=== PATIENT | male | born 1960 | race Native Hawaiian/Other Pacific Islander ===

== ENCOUNTER → 2016-08-06 10:31 | Outpatient (CLI) | payer OTHER, BC | END | disposition home or self-care (01) | LOC: AMB 10:31 | DX: R55 Syncope and collapse (principal) ==

== ENCOUNTER 2016-08-26 08:44 | Outpatient (CLI) | payer OTHER, BC | END 2016-08-26 10:00 | disposition home or self-care (01) | LOC: LABW 08:44 | DX: Z94.0 Kidney transplant status (principal) | CPT/HCPCS: 36415; 80197 ==

== ENCOUNTER 2016-09-23 08:12 | Outpatient (CLI) | payer OTHER, BC | END 2016-09-23 19:10 | disposition home or self-care (01) | LOC: LABW 08:12 | DX: Z94.0 Kidney transplant status (principal) | CPT/HCPCS: 36415; 80197 ==

== ENCOUNTER 2016-10-21 08:44 | Outpatient (CLI) | payer OTHER, BC | END 2016-10-21 09:45 | disposition home or self-care (01) | LOC: LABW 08:44 | DX: Z94.0 Kidney transplant status (principal) | CPT/HCPCS: 36415; 80197 ==

== ENCOUNTER 2017-01-09 11:42 | Emergency (ER) | payer OTHER, BC ==
[~2017-01-09] VITALS: Ht 172.7 cm; Wt 80.7 kg
[2017-01-09 12:37] LABS: PLATELET COUNT 311 K/uL (142-355)
[2017-01-09 12:57] LABS: POTASSIUM 3.9 mmol/L (3.6-5.2)
== END 2017-01-09 12:45 | disposition short-term general hospital (02) ==
LOC: ED 11:42
DX: R07.89 Other chest pain (principal); I20.0 Unstable angina; E11.9 Type 2 diabetes mellitus without complications
CPT/HCPCS: 36415; 80053; 82550; 82962; 84484; 85027; 85610; 85730; 93005; 96365; 96366; 99285; J1644; J3490

== ENCOUNTER 2017-01-09 12:52 | Outpatient (CLI) | payer OTHER, BC | END 2017-01-09 13:22 | disposition short-term general hospital (02) | LOC: AMB 12:52 | DX: R07.89 Other chest pain (principal); I20.0 Unstable angina; E11.9 Type 2 diabetes mellitus without complications | CPT/HCPCS: A0425; A0427 ==

== ENCOUNTER 2017-03-18 14:25 | Outpatient (CLI) | payer OTHER, BC | END 2017-03-18 21:43 | disposition home or self-care (01) | LOC: LABW 14:25 | DX: Z94.0 Kidney transplant status (principal) | CPT/HCPCS: 36415; 80197 ==

== ENCOUNTER 2017-07-29 09:51 | Outpatient (CLI) | payer OTHER, BC | END 2017-07-29 22:29 | disposition home or self-care (01) | LOC: LAB 09:51 | DX: Z94.0 Kidney transplant status (principal) | CPT/HCPCS: 80197 ==

== ENCOUNTER 2017-08-19 11:10 | Outpatient (CLI) | payer OTHER, BC | END 2017-08-19 19:59 | disposition home or self-care (01) | LOC: LAB 11:10 | DX: Z94.0 Kidney transplant status (principal) | CPT/HCPCS: 80197 ==

== ENCOUNTER 2017-09-12 13:58 | Outpatient (CLI) | payer OTHER, BC | END 2017-09-12 19:49 | disposition home or self-care (01) | LOC: LABW 13:58 | DX: Z79.01 Long term (current) use of anticoagulants (principal); Z79.899 Other long term (current) drug therapy; Z51.81 Encounter for therapeutic drug level monitoring; I48.92 Unspecified atrial flutter | CPT/HCPCS: 36415; 85610 ==

== ENCOUNTER 2017-09-12 17:08 | Emergency (ER) | payer OTHER, BC ==
[~2017-09-12] VITALS: Ht 172.7 cm; Wt 86.6 kg
[2017-09-12 17:30] VITALS: BP 114/66; TEMP 99.9
[2017-09-12 19:25] LABS: PLATELET COUNT 202 K/uL (142-355)
[2017-09-12 19:51] LABS: PARTIAL THROMBOPLASTIN TIME 32.8 SECONDS (24.5-33.6)
== END 2017-09-12 20:19 | disposition home or self-care (01) ==
LOC: ED 17:08
PROVIDERS: Emergency Medicine
DX: R79.1 Abnormal coagulation profile (principal); N18.6 End stage renal disease
CPT/HCPCS: 85027; 85610; 85730; 96372; 99282

== ENCOUNTER 2017-09-15 10:26 | Outpatient (CLI) | payer OTHER, BC ==
[2017-09-15 10:49] LABS: PLATELET COUNT 217 K/uL (142-355)
[2017-09-16] MEDS ORDERED: METO50TA27 PO (11:07)
[2017-09-16] MEDS ORDERED: WARF5TAB6 PO (11:07)
[2017-09-16] MEDS ORDERED: ASTAGRAF XL1 MG PO (11:08)
[2017-09-16] MEDS ORDERED: MYCOPHENOLATE500 MG IV (11:09)
[2017-09-16] MEDS ORDERED: PROTONIX20 MG PO (11:10)
[2017-09-16] MEDS ORDERED: OMEPRAZOLE40 MG (11:11)
[2017-09-16] MEDS ORDERED: PRINIVIL5 MG OR (11:11)
[2017-09-16] MEDS ORDERED: GABA300C2 PO (11:12)
[2017-09-16] MEDS ORDERED: NEURONTIN 100M100 MG (11:12)
== END 2017-09-15 19:48 | disposition home or self-care (01) ==
LOC: LABW 10:26
PROVIDERS: Nurse Practitioner Adult Health
DX: I25.10 Atherosclerotic heart disease of native coronary artery without angina pectoris (principal); Z79.01 Long term (current) use of anticoagulants; I48.0 Paroxysmal atrial fibrillation; Z51.81 Encounter for therapeutic drug level monitoring
CPT/HCPCS: 36415; 85027; 85610

== ENCOUNTER 2017-09-16 08:14 | Emergency (ER) | payer OTHER, BC ==
[~2017-09-16] VITALS: Ht 172.7 cm; Wt 86.2 kg
[2017-09-16 08:13] VITALS: TEMP 97.9
[2017-09-16 09:39] LABS: PLATELET COUNT 221 K/uL (142-355)
[2017-09-16 09:58] LABS: POTASSIUM 5.4 mmol/L (3.6-5.2)
[2017-09-16 11:02] VITALS: BP 134/77
[2017-09-16] MEDS ORDERED: METO50TA27 PO (11:07)
[2017-09-16] MEDS ORDERED: WARF5TAB6 PO (11:07)
[2017-09-16] MEDS ORDERED: ASTAGRAF XL1 MG PO (11:08)
[2017-09-16] MEDS ORDERED: MYCOPHENOLATE500 MG IV (11:09)
[2017-09-16] MEDS ORDERED: PROTONIX20 MG PO (11:10)
[2017-09-16] MEDS ORDERED: PRINIVIL5 MG OR (11:11)
[2017-09-16] MEDS ORDERED: OMEPRAZOLE40 MG (11:11)
[2017-09-16] MEDS ORDERED: NEURONTIN 100M100 MG (11:12)
[2017-09-16] MEDS ORDERED: GABA300C2 PO (11:12)
== END 2017-09-16 11:02 | disposition home or self-care (01) ==
LOC: ED 08:14
PROVIDERS: Internal Medicine
DX: R07.89 Other chest pain (principal); I48.91 Unspecified atrial fibrillation; N18.6 End stage renal disease; E87.5 Hyperkalemia; I48.92 Unspecified atrial flutter; I45.81 Long QT syndrome
CPT/HCPCS: 36415; 80053; 82550; 82553; 84484; 85027; 93005; 99284

== ENCOUNTER 2017-09-22 13:45 | Outpatient (CLI) | payer OTHER, BC ==
[~2017-09-22 13:45] MED LIST: ASTAGRAF XL1 MG PO; GABA300C2 PO; METO50TA27 PO; MYCOPHENOLATE500 MG IV; NEURONTIN 100M100 MG; OMEPRAZOLE40 MG; PRINIVIL5 MG OR; PROTONIX20 MG PO; WARF5TAB6 PO
== END 2017-09-22 22:42 | disposition home or self-care (01) ==
LOC: LABW 13:45
DX: Z79.01 Long term (current) use of anticoagulants (principal); Z79.899 Other long term (current) drug therapy; Z51.81 Encounter for therapeutic drug level monitoring; I48.92 Unspecified atrial flutter
CPT/HCPCS: 36415; 85610

== ENCOUNTER 2017-09-26 10:05 | Outpatient (CLI) | payer OTHER, BC | END 2017-09-26 19:16 | disposition home or self-care (01) | LOC: LABW 10:05 | DX: I48.92 Unspecified atrial flutter (principal); Z79.01 Long term (current) use of anticoagulants | CPT/HCPCS: 36415; 85610 ==

== ENCOUNTER 2017-10-01 11:27 | Outpatient (CLI) | payer OTHER, BC | END 2017-10-01 23:58 | disposition home or self-care (01) | LOC: LABW 11:27 | DX: I48.92 Unspecified atrial flutter (principal) | CPT/HCPCS: 36415; 85610 ==

== ENCOUNTER 2017-10-10 10:10 | Outpatient (CLI) | payer OTHER, BC ==
[2017-10-10 10:35] LABS: PLATELET COUNT 262 K/uL (142-355)
== END 2017-10-10 18:00 | disposition home or self-care (01) ==
LOC: RESP 10:10 → LABW 10:10
PROVIDERS: Nurse Practitioner
DX: Z79.01 Long term (current) use of anticoagulants (principal); Z79.899 Other long term (current) drug therapy; I48.92 Unspecified atrial flutter; Z51.81 Encounter for therapeutic drug level monitoring; R53.83 Other fatigue
CPT/HCPCS: 36415; 85027; 85610; 93225

== ENCOUNTER 2017-10-27 09:06 | Outpatient (CLI) | payer OTHER, BC | END 2017-10-27 19:53 | disposition home or self-care (01) | LOC: LABW 09:06 | DX: Z79.01 Long term (current) use of anticoagulants (principal); Z79.899 Other long term (current) drug therapy; Z51.81 Encounter for therapeutic drug level monitoring; I48.92 Unspecified atrial flutter | CPT/HCPCS: 36415; 85610 ==

== ENCOUNTER 2017-10-28 09:52 | Outpatient (CLI) | payer OTHER, BC ==
[2017-10-28 10:19] LABS: PLATELET COUNT 289 K/uL (142-355)
== END 2017-10-28 19:29 | disposition home or self-care (01) ==
LOC: LAB 09:52
PROVIDERS: Physician Assistant
DX: Z79.01 Long term (current) use of anticoagulants (principal); I48.92 Unspecified atrial flutter; Z79.899 Other long term (current) drug therapy; Z51.81 Encounter for therapeutic drug level monitoring
CPT/HCPCS: 85027; 85610

== ENCOUNTER 2017-10-30 09:53 | Outpatient (CLI) | payer OTHER, BC ==
[2017-10-30 10:06] LABS: POTASSIUM 2.9 mmol/L (3.6-5.2)
[2017-10-30 10:13] LABS: PLATELET COUNT 265 K/uL (142-355)
== END 2017-10-30 19:50 | disposition home or self-care (01) ==
LOC: LAB 09:53
PROVIDERS: Physician Assistant
DX: I48.92 Unspecified atrial flutter (principal)
CPT/HCPCS: 80048; 85027; 85610

== ENCOUNTER 2017-11-11 09:10 | Outpatient (CLI) | payer OTHER, BC ==
[2017-11-11 09:41] LABS: PLATELET COUNT 252 K/uL (142-355)
[2017-11-11 09:55] LABS: POTASSIUM 5.7 mmol/L (3.6-5.2)
== END 2017-11-11 19:06 | disposition home or self-care (01) ==
LOC: LAB 09:10
PROVIDERS: Nurse Practitioner Adult Health
DX: I48.92 Unspecified atrial flutter (principal); Z79.01 Long term (current) use of anticoagulants; Z79.899 Other long term (current) drug therapy
CPT/HCPCS: 80048; 85027; 85610

== ENCOUNTER 2017-11-13 10:59 | Outpatient (CLI) | payer OTHER, BC ==
[2017-11-13 12:08] LABS: PLATELET COUNT 217 K/uL (142-355)
[2017-11-13 12:18] LABS: POTASSIUM 3.1 mmol/L (3.6-5.2)
== END 2017-11-13 23:17 | disposition home or self-care (01) ==
LOC: LAB 10:59
PROVIDERS: Nurse Practitioner Adult Health
DX: I48.92 Unspecified atrial flutter (principal); Z79.01 Long term (current) use of anticoagulants; Z79.899 Other long term (current) drug therapy
CPT/HCPCS: 80048; 85027; 85610

== ENCOUNTER 2017-11-17 09:13 | Outpatient (CLI) | payer OTHER, BC | END 2017-11-17 21:04 | disposition home or self-care (01) | LOC: LABW 09:13 | DX: I48.92 Unspecified atrial flutter (principal); Z79.899 Other long term (current) drug therapy; Z79.01 Long term (current) use of anticoagulants | CPT/HCPCS: 36415; 85610 ==

== ENCOUNTER 2017-11-18 10:34 | Outpatient (CLI) | payer OTHER, BC ==
[2017-11-18 11:00] LABS: PLATELET COUNT 272 K/uL (142-355)
[2017-11-18 11:23] LABS: POTASSIUM 3.3 mmol/L (3.6-5.2)
== END 2017-11-18 19:59 | disposition home or self-care (01) ==
LOC: LAB 10:34
PROVIDERS: Physician Assistant
DX: I48.92 Unspecified atrial flutter (principal); Z79.899 Other long term (current) drug therapy; Z79.01 Long term (current) use of anticoagulants
CPT/HCPCS: 80048; 85027; 85610

== ENCOUNTER 2017-11-20 09:55 | Outpatient (CLI) | payer OTHER, BC ==
[2017-11-20 10:12] LABS: PLATELET COUNT 276 K/uL (142-355)
[2017-11-20 12:59] LABS: POTASSIUM 5.3 mmol/L (3.6-5.2)
== END 2017-11-20 21:15 | disposition home or self-care (01) ==
LOC: LAB 09:55
PROVIDERS: Nurse Practitioner Adult Health
DX: I48.92 Unspecified atrial flutter (principal); Z79.01 Long term (current) use of anticoagulants; Z79.899 Other long term (current) drug therapy
CPT/HCPCS: 80048; 85027; 85610

== ENCOUNTER 2017-11-25 10:23 | Outpatient (CLI) | payer OTHER, BC ==
[2017-11-25 11:08] LABS: POTASSIUM 5.2 mmol/L (3.6-5.2)
== END 2017-11-25 21:59 | disposition home or self-care (01) ==
LOC: LAB 10:23
PROVIDERS: Nurse Practitioner Adult Health
DX: I48.92 Unspecified atrial flutter (principal); Z79.899 Other long term (current) drug therapy; Z79.01 Long term (current) use of anticoagulants
CPT/HCPCS: 80048; 85610

== ENCOUNTER 2017-12-02 10:31 | Outpatient (CLI) | payer OTHER, BC ==
[2017-12-02 11:05] LABS: POTASSIUM 5.5 mmol/L (3.6-5.2)
[2017-12-02 11:11] LABS: PLATELET COUNT 328 K/uL (142-355)
== END 2017-12-02 23:51 | disposition home or self-care (01) ==
LOC: LAB 10:31
PROVIDERS: Nurse Practitioner Adult Health
DX: Z79.01 Long term (current) use of anticoagulants (principal); Z79.899 Other long term (current) drug therapy; I48.92 Unspecified atrial flutter
CPT/HCPCS: 36415; 80048; 85027; 85610

== ENCOUNTER 2017-12-04 10:05 | Outpatient (CLI) | payer OTHER, BC ==
[2017-12-04 10:22] LABS: PLATELET COUNT 318 K/uL (142-355)
[2017-12-04 10:39] LABS: POTASSIUM 5.6 mmol/L (3.6-5.2)
== END 2017-12-04 19:16 | disposition home or self-care (01) ==
LOC: LAB 10:05
PROVIDERS: Nurse Practitioner Adult Health
DX: Z79.01 Long term (current) use of anticoagulants (principal); Z79.899 Other long term (current) drug therapy; I48.92 Unspecified atrial flutter
CPT/HCPCS: 80048; 85027; 85610

== ENCOUNTER 2017-12-09 10:15 | Outpatient (CLI) | payer OTHER, BC ==
[2017-12-09 10:36] LABS: PLATELET COUNT 307 K/uL (142-355)
[2017-12-09 10:56] LABS: POTASSIUM 5.4 mmol/L (3.6-5.2)
== END 2017-12-09 23:30 | disposition home or self-care (01) ==
LOC: LAB 10:15
PROVIDERS: Nurse Practitioner Adult Health
DX: I48.92 Unspecified atrial flutter (principal); Z79.01 Long term (current) use of anticoagulants; Z79.899 Other long term (current) drug therapy
CPT/HCPCS: 36415; 80048; 85027; 85610

== ENCOUNTER 2017-12-11 10:45 | Outpatient (CLI) | payer OTHER, BC ==
[2017-12-11 11:04] LABS: PLATELET COUNT 293 K/uL (142-355)
[2017-12-11 11:16] LABS: POTASSIUM 5.5 mmol/L (3.6-5.2)
== END 2017-12-11 23:21 | disposition home or self-care (01) ==
LOC: LAB 10:45
PROVIDERS: Nurse Practitioner Adult Health
DX: I48.92 Unspecified atrial flutter (principal); Z79.899 Other long term (current) drug therapy; Z79.01 Long term (current) use of anticoagulants
CPT/HCPCS: 80048; 85027; 85610

== ENCOUNTER 2017-12-16 10:03 | Outpatient (CLI) | payer OTHER, BC ==
[2017-12-16 10:27] LABS: PLATELET COUNT 273 K/uL (142-355)
[2017-12-16 10:54] LABS: POTASSIUM 5.4 mmol/L (3.6-5.2)
== END 2017-12-16 22:21 | disposition home or self-care (01) ==
LOC: LAB 10:03
PROVIDERS: Nurse Practitioner Adult Health
DX: I48.92 Unspecified atrial flutter (principal); Z79.899 Other long term (current) drug therapy; Z79.01 Long term (current) use of anticoagulants
CPT/HCPCS: 80048; 85027; 85610

== ENCOUNTER 2017-12-23 10:08 | Outpatient (CLI) | payer OTHER, BC ==
[2017-12-23 10:30] LABS: PLATELET COUNT 289 K/uL (142-355)
[2017-12-23 10:33] LABS: POTASSIUM 5.4 mmol/L (3.6-5.2)
== END 2017-12-23 22:27 | disposition home or self-care (01) ==
LOC: LAB 10:08
PROVIDERS: Nurse Practitioner Adult Health
DX: I48.92 Unspecified atrial flutter (principal); Z79.01 Long term (current) use of anticoagulants; Z79.899 Other long term (current) drug therapy
CPT/HCPCS: 80048; 85027; 85610

== ENCOUNTER 2017-12-30 12:30 | Outpatient (CLI) | payer OTHER, BC ==
[2017-12-30 12:49] LABS: POTASSIUM 5.9 mmol/L (3.6-5.2)
[2017-12-30 12:52] LABS: PLATELET COUNT 254 K/uL (142-355)
== END 2017-12-30 23:27 | disposition home or self-care (01) ==
LOC: LAB 12:30
PROVIDERS: Nurse Practitioner Adult Health
DX: I48.92 Unspecified atrial flutter (principal); Z79.899 Other long term (current) drug therapy; Z79.01 Long term (current) use of anticoagulants; N43.3 Hydrocele, unspecified
CPT/HCPCS: 80048; 85027; 85610

== ENCOUNTER 2017-12-30 12:54 | Outpatient (CLI) | payer OTHER, BC | END 2017-12-30 23:28 | disposition home or self-care (01) | LOC: US 12:54 | DX: N43.3 Hydrocele, unspecified (principal) ==

== ENCOUNTER 2018-01-06 10:12 | Outpatient (CLI) | payer OTHER, BC ==
[2018-01-06 10:47] LABS: PLATELET COUNT 241 K/uL (142-355)
[2018-01-06 11:24] LABS: POTASSIUM 5.2 mmol/L (3.6-5.2)
== END 2018-01-06 23:03 | disposition home or self-care (01) ==
LOC: LAB 10:12
PROVIDERS: Nurse Practitioner Adult Health
DX: I48.92 Unspecified atrial flutter (principal); Z79.899 Other long term (current) drug therapy; Z79.01 Long term (current) use of anticoagulants
CPT/HCPCS: 80048; 85027; 85610

== ENCOUNTER 2018-01-27 09:33 | Outpatient (CLI) | payer OTHER, BC ==
[2018-01-27 09:45] LABS: PLATELET COUNT 223 K/uL (142-355)
[2018-01-27 09:58] LABS: POTASSIUM 4.6 mmol/L (3.6-5.2)
== END 2018-01-27 21:21 | disposition home or self-care (01) ==
LOC: LAB 09:33
PROVIDERS: Nurse Practitioner Adult Health
DX: I48.92 Unspecified atrial flutter (principal); Z79.899 Other long term (current) drug therapy; Z79.01 Long term (current) use of anticoagulants
CPT/HCPCS: 36415; 80048; 85027; 85610

== ENCOUNTER 2018-02-03 11:11 | Outpatient (CLI) | payer OTHER, BC ==
[2018-02-03 11:25] LABS: PLATELET COUNT 208 K/uL (142-355)
[2018-02-03 11:41] LABS: POTASSIUM 6.4 mmol/L (3.6-5.2)
== END 2018-02-03 21:22 | disposition home or self-care (01) ==
LOC: LAB 11:11
PROVIDERS: Nurse Practitioner Adult Health
DX: I48.92 Unspecified atrial flutter (principal); Z79.01 Long term (current) use of anticoagulants; Z79.899 Other long term (current) drug therapy
CPT/HCPCS: 80048; 85027; 85610

== ENCOUNTER 2018-02-10 11:13 | Outpatient (CLI) | payer OTHER, BC ==
[2018-02-10 11:42] LABS: PLATELET COUNT 241 K/uL (142-355)
[2018-02-10 12:48] LABS: POTASSIUM 5.3 mmol/L (3.6-5.2)
== END 2018-02-10 22:19 | disposition home or self-care (01) ==
LOC: LABW 11:13
PROVIDERS: Nurse Practitioner Adult Health
DX: I48.92 Unspecified atrial flutter (principal); Z79.01 Long term (current) use of anticoagulants; Z79.899 Other long term (current) drug therapy
CPT/HCPCS: 80048; 85027; 85610

== ENCOUNTER 2018-02-17 10:09 | Outpatient (CLI) | payer OTHER, BC ==
[2018-02-17 11:11] LABS: PLATELET COUNT 208 K/uL (142-355)
[2018-02-17 11:19] LABS: POTASSIUM 5.3 mmol/L (3.6-5.2)
== END 2018-02-17 22:06 | disposition home or self-care (01) ==
LOC: LAB 10:09
PROVIDERS: Nurse Practitioner Adult Health
DX: I48.92 Unspecified atrial flutter (principal); Z79.899 Other long term (current) drug therapy; Z79.01 Long term (current) use of anticoagulants
CPT/HCPCS: 80048; 85027; 85610

== ENCOUNTER 2018-02-24 10:07 | Outpatient (CLI) | payer OTHER, BC ==
[2018-02-24 10:19] LABS: PLATELET COUNT 250 K/uL (142-355)
[2018-02-24 10:38] LABS: POTASSIUM 5.2 mmol/L (3.6-5.2)
== END 2018-02-24 22:24 | disposition home or self-care (01) ==
LOC: LAB 10:07
PROVIDERS: Nurse Practitioner Adult Health
DX: Z79.01 Long term (current) use of anticoagulants (principal); Z79.899 Other long term (current) drug therapy; I48.92 Unspecified atrial flutter
CPT/HCPCS: 80048; 85027; 85610

== ENCOUNTER 2018-03-03 12:02 | Outpatient (CLI) | payer OTHER, BC ==
[2018-03-03 12:25] LABS: PLATELET COUNT 260 K/uL (142-355)
[2018-03-03 13:14] LABS: POTASSIUM 5.2 mmol/L (3.6-5.2)
== END 2018-03-03 21:07 | disposition home or self-care (01) ==
LOC: LAB 12:02
PROVIDERS: Nurse Practitioner Adult Health
DX: I48.92 Unspecified atrial flutter (principal); Z79.899 Other long term (current) drug therapy; Z79.01 Long term (current) use of anticoagulants; Z94.0 Kidney transplant status
CPT/HCPCS: 80048; 80197; 85027; 85610

== ENCOUNTER 2018-03-05 14:01 | Outpatient (CLI) | payer OTHER, BC ==
[2018-03-05 14:24] LABS: PLATELET COUNT 231 K/uL (142-355)
[2018-03-05 14:40] LABS: POTASSIUM 5.9 mmol/L (3.6-5.2)
== END 2018-03-05 19:43 | disposition home or self-care (01) ==
LOC: LAB 14:01
PROVIDERS: Nurse Practitioner Adult Health
DX: Z79.01 Long term (current) use of anticoagulants (principal); Z79.899 Other long term (current) drug therapy; I48.92 Unspecified atrial flutter
CPT/HCPCS: 80048; 85027; 85610

== ENCOUNTER 2018-03-10 11:40 | Outpatient (CLI) | payer OTHER, BC ==
[2018-03-10 12:21] LABS: PLATELET COUNT 263 K/uL (142-355)
[2018-03-10 12:24] LABS: POTASSIUM 5.5 mmol/L (3.6-5.2)
== END 2018-03-10 21:29 | disposition home or self-care (01) ==
LOC: LAB 11:40
PROVIDERS: Nurse Practitioner Adult Health
DX: I48.92 Unspecified atrial flutter (principal); Z79.01 Long term (current) use of anticoagulants; Z79.899 Other long term (current) drug therapy
CPT/HCPCS: 80048; 85027; 85610

== ENCOUNTER 2018-03-17 10:23 | Outpatient (CLI) | payer OTHER, BC ==
[2018-03-17 10:38] LABS: PLATELET COUNT 248 K/uL (142-355)
[2018-03-17 11:13] LABS: POTASSIUM 5.3 mmol/L (3.6-5.2)
== END 2018-03-17 22:11 | disposition home or self-care (01) ==
LOC: LAB 10:23
PROVIDERS: Nurse Practitioner Adult Health
DX: I48.92 Unspecified atrial flutter (principal); Z79.899 Other long term (current) drug therapy; Z79.01 Long term (current) use of anticoagulants
CPT/HCPCS: 80048; 85027; 85610

== ENCOUNTER 2018-03-24 10:30 | Outpatient (CLI) | payer OTHER, BC ==
[2018-03-24 10:49] LABS: POTASSIUM 5.2 mmol/L (3.6-5.2)
[2018-03-24 11:01] LABS: PLATELET COUNT 206 K/uL (142-355)
== END 2018-03-24 22:32 | disposition home or self-care (01) ==
LOC: LAB 10:30
PROVIDERS: Nurse Practitioner Adult Health
DX: I48.92 Unspecified atrial flutter (principal); Z79.01 Long term (current) use of anticoagulants; Z79.899 Other long term (current) drug therapy
CPT/HCPCS: 80048; 85027; 85610

== ENCOUNTER 2018-04-07 09:37 | Outpatient (CLI) | payer OTHER, BC ==
[2018-04-07 09:45] LABS: PLATELET COUNT 178 K/uL (142-355)
== END 2018-04-07 20:42 | disposition home or self-care (01) ==
LOC: LAB 09:37
PROVIDERS: Physician Assistant
DX: I48.92 Unspecified atrial flutter (principal)
CPT/HCPCS: 85027; 85610

== ENCOUNTER 2018-04-09 11:15 | Outpatient (CLI) | payer OTHER, BC | END 2018-04-09 22:32 | disposition home or self-care (01) | LOC: LAB 11:15 | DX: I48.92 Unspecified atrial flutter (principal); Z79.899 Other long term (current) drug therapy; Z79.01 Long term (current) use of anticoagulants | CPT/HCPCS: 85610 ==

== ENCOUNTER 2018-04-16 11:58 | Outpatient (CLI) | payer OTHER ==
[2018-04-16 12:40] LABS: PARTIAL THROMBOPLASTIN TIME 32.4 SECONDS (24.5-33.6)
[2018-04-16 12:50] LABS: PLATELET COUNT 274 K/uL (142-355)
== END 2018-04-16 19:11 | disposition home or self-care (01) ==
LOC: LAB 11:58
PROVIDERS: Internal Medicine
DX: K92.1 Melena (principal); E11.9 Type 2 diabetes mellitus without complications; Z79.01 Long term (current) use of anticoagulants; Z51.81 Encounter for therapeutic drug level monitoring; Z79.899 Other long term (current) drug therapy; I48.92 Unspecified atrial flutter
CPT/HCPCS: 83036; 85027; 85610; 85730

== ENCOUNTER 2018-04-20 10:18 | Observation (INO) | payer OTHER ==
[~2018-04-20] VITALS: Ht 172.7 cm; Wt 75.0 kg
[2018-04-20 11:53] VITALS: BP 139/71; TEMP 97.5; Ht 172.7 cm; Wt 75.0 kg
[2018-04-20] MEDS ORDERED: TEMA30CA18 PO (13:18)
[2018-04-20] MEDS ORDERED: LISI5TAB10 PO (13:19)
[2018-04-20] MEDS ORDERED: NITROGLYCERIN0.4 MG SL (13:20)
[2018-04-20] MEDS ORDERED: WARF4TAB7 PO (13:26)
[2018-04-20] MEDS ORDERED: TESSALON PER100 MG PO (13:27)
[2018-04-20] MEDS ORDERED: RENVELA800 MG PO (13:29)
[2018-04-20] MEDS ORDERED: ALPR0.5T24 PO (13:29)
[2018-04-20 15:32] LABS: PLATELET COUNT 302 K/uL (142-355)
[2018-04-20 16:00] VITALS: BP 120/75; TEMP 97.4
[2018-04-20] MEDS ORDERED: CELLCEPT250 MG PO (16:53)
[2018-04-20] MEDS ORDERED: PROGRAF1 MG PO (16:54)
[2018-04-20] MEDS ORDERED: PANTOPRAZOLE 40MG TA PO (16:56)
[2018-04-20] MEDS ORDERED: OMEP40CA PO (16:57)
[2018-04-20] MEDS ORDERED: WARF1TAB7 PO (16:57)
[2018-04-20 20:23] VITALS: BP 139/85; TEMP 97.9
[2018-04-21] VITALS: BP 150/89; TEMP 97.5
[2018-04-21 04:00] VITALS: BP 138/80; TEMP 97.3
--- NOTE | 2018-04-21 05:46 | NUR ---
DISCHARGE PAPERS GIVEN, PT LEFT FOR DIALYSIS ACCOMPANIED BY SPOUSE.
== END 2018-04-21 05:48 | disposition home or self-care (01) ==
LOC: INF 10:18 → MED/SURG 11:01 → UNDODEPCLI 04-22 22:19
PROVIDERS: ADMIT Internal Medicine
PROC: 30233N1 Transfusion of Nonautologous Red Blood Cells into Peripheral Vein, Percutaneous Approach (ICD-10-PCS; principal; 2018-04-20)
DX: K92.2 Gastrointestinal hemorrhage, unspecified (principal); N18.6 End stage renal disease; I12.0 Hypertensive chronic kidney disease with stage 5 chronic kidney disease or end stage renal disease; Z99.2 Dependence on renal dialysis; K31.84 Gastroparesis; G62.89 Other specified polyneuropathies; K21.9 Gastro-esophageal reflux disease without esophagitis; I48.91 Unspecified atrial fibrillation; D64.89 Other specified anemias; Z79.01 Long term (current) use of anticoagulants; R05 Cough
CPT/HCPCS: 36415; 85027; 85610; 86850; 86900; 86901; 86922; 99220; G0378; P9016

== ENCOUNTER 2018-04-21 10:06 | Outpatient (CLI) | payer OTHER ==
[~2018-04-21 10:06] MED LIST changes: +ALPR0.5T24 PO; +CELLCEPT250 MG PO; +LISI5TAB10 PO; +NITROGLYCERIN0.4 MG SL; +OMEP40CA PO; +PANTOPRAZOLE 40MG TA PO; +PROGRAF1 MG PO; +RENVELA800 MG PO; +TEMA30CA18 PO; +TESSALON PER100 MG PO; +WARF1TAB7 PO; +WARF4TAB7 PO
[2018-04-21 10:38] LABS: PLATELET COUNT 306 K/uL (142-355)
[2018-04-21 10:44] LABS: POTASSIUM 3.2 mmol/L (3.6-5.2)
== END 2018-04-21 23:42 | disposition home or self-care (01) ==
LOC: LAB 10:06
PROVIDERS: Internal Medicine
DX: Z79.899 Other long term (current) drug therapy (principal); I48.92 Unspecified atrial flutter; Z79.01 Long term (current) use of anticoagulants; D64.9 Anemia, unspecified
CPT/HCPCS: 80053; 85027; 85610

== ENCOUNTER 2018-04-22 07:44 | Day surgery (SDC) | payer OTHER ==
[~2018-04-22] VITALS: Ht 30.5 cm; Wt 0.5 kg
== END 2018-04-22 10:47 | disposition home or self-care (01) ==
LOC: OR 07:44
PROC: 0DB68ZZ Excision of Stomach, Via Natural or Artificial Opening Endoscopic (ICD-10-PCS; principal; 2018-04-22)
DX: K29.50 Unspecified chronic gastritis without bleeding (principal); K92.2 Gastrointestinal hemorrhage, unspecified; R19.5 Other fecal abnormalities; K44.9 Diaphragmatic hernia without obstruction or gangrene; R05 Cough
CPT/HCPCS: 94640; 94664; 94760; J2001; J2250; J2405; J2704; J2765; J3490

== ENCOUNTER 2018-04-28 10:07 | Outpatient (CLI) | payer OTHER ==
[2018-04-28 10:35] LABS: PLATELET COUNT 282 K/uL (142-355)
== END 2018-04-28 21:05 | disposition home or self-care (01) ==
LOC: LAB 10:07
PROVIDERS: Nurse Practitioner Adult Health
DX: I48.92 Unspecified atrial flutter (principal); Z79.899 Other long term (current) drug therapy; Z79.01 Long term (current) use of anticoagulants
CPT/HCPCS: 85027; 85610

== ENCOUNTER 2018-05-05 10:51 | Outpatient (CLI) | payer OTHER ==
[2018-05-05 11:06] LABS: PLATELET COUNT 286 K/uL (142-355)
== END 2018-05-05 19:11 | disposition home or self-care (01) ==
LOC: LAB 10:51
PROVIDERS: Nurse Practitioner Adult Health
DX: I48.92 Unspecified atrial flutter (principal); Z79.899 Other long term (current) drug therapy; Z79.01 Long term (current) use of anticoagulants
CPT/HCPCS: 85027; 85610

== ENCOUNTER 2018-05-14 10:59 | Outpatient (CLI) | payer OTHER ==
[2018-05-14 11:29] LABS: PLATELET COUNT 196 K/uL (142-355)
== END 2018-05-14 22:24 | disposition home or self-care (01) ==
LOC: LAB 10:59
PROVIDERS: Nurse Practitioner Adult Health
DX: I48.92 Unspecified atrial flutter (principal); Z79.899 Other long term (current) drug therapy; Z79.01 Long term (current) use of anticoagulants
CPT/HCPCS: 85027; 85610

== ENCOUNTER 2018-05-21 12:16 | Outpatient (CLI) | payer OTHER ==
[2018-05-21 13:04] LABS: PLATELET COUNT 270 K/uL (142-355)
== END 2018-05-21 20:37 | disposition home or self-care (01) ==
LOC: LAB 12:16
PROVIDERS: Nurse Practitioner Adult Health
DX: I48.92 Unspecified atrial flutter (principal); Z79.899 Other long term (current) drug therapy; Z79.01 Long term (current) use of anticoagulants
CPT/HCPCS: 85027; 85610

== ENCOUNTER 2018-05-26 13:24 | Outpatient (CLI) | payer OTHER ==
[2018-05-26 13:53] LABS: PLATELET COUNT 315 K/uL (142-355)
== END 2018-05-26 23:16 | disposition home or self-care (01) ==
LOC: LAB 13:24
PROVIDERS: Nurse Practitioner Adult Health
DX: I48.92 Unspecified atrial flutter (principal); Z79.899 Other long term (current) drug therapy; Z79.01 Long term (current) use of anticoagulants
CPT/HCPCS: 85027; 85610

== ENCOUNTER 2018-06-02 09:45 | Outpatient (CLI) | payer OTHER ==
[2018-06-02 10:40] LABS: PLATELET COUNT 296 K/uL (142-355)
== END 2018-06-02 19:24 | disposition home or self-care (01) ==
LOC: LAB 09:45
PROVIDERS: Nurse Practitioner Adult Health
DX: E78.2 Mixed hyperlipidemia (principal); Z79.899 Other long term (current) drug therapy; I48.0 Paroxysmal atrial fibrillation
CPT/HCPCS: 80061; 80076; 84436; 84443; 84479; 85027; 85610

== ENCOUNTER 2018-06-09 13:19 | Outpatient (CLI) | payer OTHER ==
[2018-06-09 13:52] LABS: PLATELET COUNT 303 K/uL (142-355)
== END 2018-06-09 23:54 | disposition home or self-care (01) ==
LOC: LAB 13:19
PROVIDERS: Nurse Practitioner Adult Health
DX: I48.92 Unspecified atrial flutter (principal); Z79.01 Long term (current) use of anticoagulants; Z79.899 Other long term (current) drug therapy
CPT/HCPCS: 85027; 85610

== ENCOUNTER 2018-06-16 10:23 | Outpatient (CLI) | payer OTHER ==
[2018-06-16 10:39] LABS: PLATELET COUNT 242 K/uL (142-355)
== END 2018-06-16 19:38 | disposition home or self-care (01) ==
LOC: LAB 10:23
PROVIDERS: Nurse Practitioner Adult Health
DX: I48.92 Unspecified atrial flutter (principal); Z79.899 Other long term (current) drug therapy; Z79.01 Long term (current) use of anticoagulants
CPT/HCPCS: 85027; 85610

== ENCOUNTER 2018-06-18 08:53 | Outpatient (CLI) | payer OTHER ==
[2018-06-18 09:04] LABS: PLATELET COUNT 221 K/uL (142-355)
== END 2018-06-18 20:19 | disposition home or self-care (01) ==
LOC: LAB 08:53
PROVIDERS: Nurse Practitioner Adult Health
DX: I48.92 Unspecified atrial flutter (principal); Z79.899 Other long term (current) drug therapy; Z79.01 Long term (current) use of anticoagulants
CPT/HCPCS: 85027; 85610

== ENCOUNTER 2018-06-23 10:21 | Outpatient (CLI) | payer OTHER ==
[2018-06-23 10:40] LABS: PLATELET COUNT 201 K/uL (142-355)
== END 2018-06-23 22:47 | disposition home or self-care (01) ==
LOC: LAB 10:21
PROVIDERS: Nurse Practitioner Adult Health
DX: I48.92 Unspecified atrial flutter (principal); Z79.01 Long term (current) use of anticoagulants; Z79.899 Other long term (current) drug therapy
CPT/HCPCS: 85027; 85610

== ENCOUNTER 2018-06-30 10:30 | Outpatient (CLI) | payer OTHER ==
[2018-06-30 10:46] LABS: PLATELET COUNT 238 K/uL (142-355)
== END 2018-06-30 21:06 | disposition home or self-care (01) ==
LOC: LAB 10:30
PROVIDERS: Nurse Practitioner Adult Health
DX: Z79.01 Long term (current) use of anticoagulants (principal); Z79.899 Other long term (current) drug therapy; I48.92 Unspecified atrial flutter
CPT/HCPCS: 85027; 85610

== ENCOUNTER 2018-07-07 11:19 | Outpatient (CLI) | payer OTHER ==
[2018-07-07 11:42] LABS: PLATELET COUNT 209 K/uL (142-355)
== END 2018-07-07 21:07 | disposition home or self-care (01) ==
LOC: LAB 11:19
PROVIDERS: Nurse Practitioner Adult Health
DX: Z79.01 Long term (current) use of anticoagulants (principal); Z79.899 Other long term (current) drug therapy; I48.92 Unspecified atrial flutter
CPT/HCPCS: 85027; 85610

== ENCOUNTER 2018-07-13 15:20 | Outpatient (CLI) | payer OTHER ==
[2018-07-13 15:49] LABS: PLATELET COUNT 194 K/uL (142-355)
== END 2018-07-13 23:06 | disposition home or self-care (01) ==
LOC: LAB 15:20
PROVIDERS: Nurse Practitioner Adult Health
DX: Z79.01 Long term (current) use of anticoagulants (principal); Z79.899 Other long term (current) drug therapy; I48.92 Unspecified atrial flutter
CPT/HCPCS: 85027; 85610

== ENCOUNTER 2018-07-18 14:18 | Outpatient (CLI) | payer OTHER | END 2018-07-18 19:35 | disposition home or self-care (01) | LOC: LAB 14:18 | DX: D64.89 Other specified anemias (principal) | CPT/HCPCS: 85014; 85018 ==

== ENCOUNTER 2018-07-21 10:32 | Outpatient (CLI) | payer OTHER ==
[2018-07-21 10:56] LABS: PLATELET COUNT 190 K/uL (142-355)
== END 2018-07-21 22:47 | disposition home or self-care (01) ==
LOC: LAB 10:32
PROVIDERS: Nurse Practitioner Adult Health
DX: Z79.01 Long term (current) use of anticoagulants (principal); Z79.899 Other long term (current) drug therapy; I48.92 Unspecified atrial flutter
CPT/HCPCS: 36415; 85027; 85610

== ENCOUNTER 2018-07-28 14:21 | Outpatient (CLI) | payer OTHER ==
[2018-07-28 14:50] LABS: PLATELET COUNT 287 K/uL (142-355)
== END 2018-07-28 20:29 | disposition home or self-care (01) ==
LOC: LAB 14:21
PROVIDERS: Nurse Practitioner Adult Health
DX: Z79.01 Long term (current) use of anticoagulants (principal); Z79.899 Other long term (current) drug therapy; I48.92 Unspecified atrial flutter
CPT/HCPCS: 85027; 85610

== ENCOUNTER 2018-07-30 11:54 | Outpatient (CLI) | payer OTHER ==
[2018-07-30 12:14] LABS: PLATELET COUNT 293 K/uL (142-355)
== END 2018-07-30 21:06 | disposition home or self-care (01) ==
LOC: LAB 11:54
PROVIDERS: Nurse Practitioner Adult Health
DX: Z79.01 Long term (current) use of anticoagulants (principal); Z79.899 Other long term (current) drug therapy; I48.92 Unspecified atrial flutter
CPT/HCPCS: 85027; 85610

== ENCOUNTER 2018-08-04 10:18 | Outpatient (CLI) | payer OTHER ==
[2018-08-04 10:33] LABS: PLATELET COUNT 319 K/uL (142-355)
== END 2018-08-04 23:14 | disposition home or self-care (01) ==
LOC: LAB 10:18
PROVIDERS: Nurse Practitioner Adult Health
DX: Z79.01 Long term (current) use of anticoagulants (principal); Z79.899 Other long term (current) drug therapy; I48.92 Unspecified atrial flutter
CPT/HCPCS: 85027; 85610

== ENCOUNTER 2018-08-11 10:08 | Outpatient (CLI) | payer OTHER ==
[2018-08-11 11:08] LABS: PLATELET COUNT 354 K/uL (142-355)
== END 2018-08-11 19:32 | disposition home or self-care (01) ==
LOC: LAB 10:08
PROVIDERS: Nurse Practitioner Adult Health
DX: Z79.01 Long term (current) use of anticoagulants (principal); Z79.899 Other long term (current) drug therapy; I48.92 Unspecified atrial flutter
CPT/HCPCS: 85027; 85610

== ENCOUNTER 2018-08-18 18:20 | Outpatient (CLI) | payer OTHER | END 2018-08-18 21:19 | disposition home or self-care (01) | LOC: LAB 18:20 | DX: Z79.01 Long term (current) use of anticoagulants (principal); Z79.899 Other long term (current) drug therapy; I48.92 Unspecified atrial flutter | CPT/HCPCS: 85610 ==

== ENCOUNTER 2018-08-25 13:39 | Outpatient (CLI) | payer OTHER ==
[2018-08-25 13:47] LABS: PLATELET COUNT 278 K/uL (142-355)
== END 2018-08-25 19:25 | disposition home or self-care (01) ==
LOC: LAB 13:39
PROVIDERS: Nurse Practitioner Adult Health
DX: I48.92 Unspecified atrial flutter (principal); Z79.01 Long term (current) use of anticoagulants; Z79.899 Other long term (current) drug therapy
CPT/HCPCS: 85027; 85610

== ENCOUNTER 2018-09-01 10:39 | Outpatient (CLI) | payer OTHER ==
[2018-09-01 11:03] LABS: PLATELET COUNT 270 K/uL (142-355)
[2018-09-01 11:17] LABS: POTASSIUM 4.5 mmol/L (3.6-5.2)
== END 2018-09-01 20:31 | disposition home or self-care (01) ==
LOC: LAB 10:39
PROVIDERS: Nurse Practitioner Adult Health
DX: I48.92 Unspecified atrial flutter (principal); Z79.899 Other long term (current) drug therapy; Z79.01 Long term (current) use of anticoagulants
CPT/HCPCS: 80053; 85027; 85610

== ENCOUNTER 2018-09-07 14:42 | Outpatient (CLI) | payer OTHER | END 2018-09-07 20:03 | disposition home or self-care (01) | LOC: RAD 14:42 | DX: Z01.811 Encounter for preprocedural respiratory examination (principal) ==

== ENCOUNTER 2018-09-10 10:44 | Outpatient (CLI) | payer OTHER ==
[2018-09-10 11:01] LABS: PLATELET COUNT 221 K/uL (142-355)
[2018-09-10 11:11] LABS: POTASSIUM 4.2 mmol/L (3.6-5.2)
== END 2018-09-10 23:50 | disposition home or self-care (01) ==
LOC: LAB 10:44
PROVIDERS: Plastic Surgery
DX: Z01.818 Encounter for other preprocedural examination (principal); I48.92 Unspecified atrial flutter; Z79.01 Long term (current) use of anticoagulants; Z79.899 Other long term (current) drug therapy
CPT/HCPCS: 80048; 85027; 85610

== ENCOUNTER 2018-09-14 16:43 | Outpatient (CLI) | payer OTHER ==
[2018-09-14 16:54] LABS: PLATELET COUNT 252 K/uL (142-355)
== END 2018-09-14 19:22 | disposition home or self-care (01) ==
LOC: LAB 16:43
PROVIDERS: Physician Assistant
DX: I48.92 Unspecified atrial flutter (principal)
CPT/HCPCS: 85027; 85610

== ENCOUNTER 2018-09-22 11:49 | Outpatient (CLI) | payer OTHER ==
[2018-09-22 12:41] LABS: PLATELET COUNT 272 K/uL (142-355)
== END 2018-09-22 19:20 | disposition home or self-care (01) ==
LOC: LAB 11:49
PROVIDERS: Nurse Practitioner Adult Health
DX: I48.92 Unspecified atrial flutter (principal); Z79.01 Long term (current) use of anticoagulants; Z79.899 Other long term (current) drug therapy
CPT/HCPCS: 85027; 85610

== ENCOUNTER 2018-09-29 11:12 | Outpatient (CLI) | payer OTHER ==
[2018-09-29 11:56] LABS: PLATELET COUNT 257 K/uL (142-355)
== END 2018-09-29 19:46 | disposition home or self-care (01) ==
LOC: LAB 11:12
PROVIDERS: Nurse Practitioner Adult Health
DX: I48.92 Unspecified atrial flutter (principal); Z79.01 Long term (current) use of anticoagulants; Z79.899 Other long term (current) drug therapy
CPT/HCPCS: 36415; 85027; 85610